=== PATIENT | female | born 2000 | race Caucasian/White ===

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

== ENCOUNTER → 2018-11-13 | Outpatient (CLI) | payer BC ==
--- NOTE | 2018-11-14 07:14 | XR ---
EXAMINATION TYPE: XR wrist complete LT DATE OF EXAM: 11/13/2018 CLINICAL HISTORY: pain TECHNIQUE: Frontal, lateral and oblique images of the left wrist are obtained. COMPARISON: None. FINDINGS: There is no acute fracture/dislocation evident. The joint spaces appear within normal gr its. The overlying soft tissue appears unremarkable. IMPRESSION: There is no acute fracture or dislocation seen. ICD 10 NO FRACTURE, INITIAL EVALUATION
== END ==
LOC: RADXRMAIN 17:12
PROVIDERS: ATTEND Family Medicine
DX: M25.532 Pain in left wrist (principal)

== ENCOUNTER 2020-11-15 23:43 | Emergency (ER) | payer BC ==
[2020-11-15 23:52] VITALS: BP 148/81; PULSE 77; RESP 16; TEMP 98.8
[2020-11-16] MEDS ORDERED: TOPICAL SKIN ADHESIVE 1 EACH AMP TOPICAL ONE (00:01)
--- NOTE | 2020-11-16 00:02 | ED ---
Wound/Laceration HPI - General Chief Complaint: Wound/Laceration Stated Complaint: Extremity injury,Right finger laceration Time Seen by Provider: 11/15/20 23:55 Source: patient Mode of arrival: ambulatory Limitations: no limitations - History of Present Illness Initial Comments: 20yo female with UTD tetanus (last year) prsenting for cc of left index finger laceration just prior to arrival. using eye brow razor pt was opening a plastic bag and it slipped cutting tip of finger. unsure if it required suture repair and presented to the ER. patient denies additional injuries. denies limited ROm of finger/sensation deficits. - Related Data Home Medications Medication Instructions Recorded Confirmed Dextroamphetamine/Amphetamine 20 mg PO DAILY 11/15/20 11/15/20 [Adderall] Allergies Allergy/AdvReac Type Severity Reaction Status Date / Time ibuprofen [From Motrin] Allergy Rash/Hives Verified 11/15/20 23:52 Penicillins Allergy Unknown Verified 11/15/20 23:52 Childhood Review of Systems ROS Statement: Those systems with pertinent positive or pertinent negative responses have been documented in the HPI. ROS Other: All systems not noted in ROS Statement are negative. Past Medical History Past Medical History: No Reported History History of Any Multi-Drug Resistant Organisms: None Reported Past Surgical History: Tonsillectomy Additional Past Surgical History / Comment(s): eustachian tubes Past Psychological History: No Psychological Hx Reported Smoking Status: Vaper Past Alcohol Use History: None Reported Past Drug Use History: None Reported General Exam - General Exam Comments Initial Comments: General: The patient is awake and alert, in no distress, and does not appear acutely ill. Eye: Pupils are equal, round and reactive to light, extra-ocular movements are intact. No nystagmus. There is normal conjunctiva bilaterally. No signs of icterus. Ears, nose, mouth and throat: There are moist mucous membranes and no oral lesions. Musculoskeletal: Normal ROM, no tenderness. Strength 5/5. Sensation intact. Pulses equal bilaterally 2+. Neurological: A&O x 3. CN II-XII intact, There are no obvious motor or sensory deficits. Coordination appears grossly intact. Speech is normal. Skin: Skin is warm and dry and no [id number] very superficial laceration of the left index finger pad. Psychiatric: Cooperative, appropriate mood & affect, normal judgment. Limitations: no limitations Course Vital Signs 11/15/20 23:47 Temperature 98.8 F Pulse Rate 77 Respiratory 16 Rate Blood Pressure 148/81 O2 Sat by Pulse 99 Oximetry Medical Decision Making - Medical Decision Making wound cleansed, examined..very superficial. no suture required. prefer exofin (topical skin adhesive). pt tdap UTD. patietn will be discharged with PCP f/u. Disposition Clinical Impression: Laceration of left index finger, Superficial laceration Disposition: HOME SELF-CARE Condition: Good Instructions (If sedation given, give patient instructions): Skin Adhesive Care (ED) Additional Instructions: Please use medication as discussed. Please follow-up with family doctor in the next 2 days of symptoms have not improved. Please return to emergency room if the symptoms increase or worsen or for any other concerns. Is patient prescribed a controlled substance at d/c from ED?: No Referrals: Tayo Hurst DO [Primary Care Provider] - 1-2 days Time of Disposition: 00:02
== END 2020-11-16 00:20 | disposition home or self-care (01) ==
LOC: EC 23:43
DX: S61.211A Laceration without foreign body of left index finger without damage to nail, initial encounter (principal); Z88.6 Allergy status to analgesic agent; Z88.0 Allergy status to penicillin; F17.290 Nicotine dependence, other tobacco product, uncomplicated; W26.8XXA Contact with other sharp object(s), not elsewhere classified, initial encounter; Y93.89 Activity, other specified
CPT/HCPCS: 99282

== ENCOUNTER 2020-11-17 21:00 | Emergency (ER) | payer BC ==
[2020-11-17 21:06] VITALS: BP 158/68; PULSE 99; RESP 18; TEMP 98.3
--- NOTE | 2020-11-17 21:24 | ED ---
Skin/Abscess/FB HPI - General Chief complaint: Skin/Abscess/Foreign Body Stated complaint: Finger Lac-revisit Time Seen by Provider: 11/17/20 21:07 Source: patient Mode of arrival: ambulatory Limitations: no limitations - History of Present Illness Initial comments: 20-year-old female patient presents to the emergency department today for evaluation of laceration to the left index finger. Patient sustained a laceration on Sunday was seen and evaluated did have the laceration glued. States that today while at work the finger started to bleed again. She was able to get the bleeding under control. Denies any significant pain. Denies any redness or purulent drainage. Denies any fever or chills. Denies any other injuries or concerns. - Related Data Home Medications Medication Instructions Recorded Confirmed Dextroamphetamine/Amphetamine 20 mg PO DAILY 11/15/20 11/15/20 [Adderall] Allergies Allergy/AdvReac Type Severity Reaction Status Date / Time ibuprofen [From Motrin] Allergy Rash/Hives Verified 11/17/20 21:06 Penicillins Allergy Unknown Verified 11/17/20 21:06 Childhood Review of Systems ROS Statement: Those systems with pertinent positive or pertinent negative responses have been documented in the HPI. ROS Other: All systems not noted in ROS Statement are negative. Past Medical History Past Medical History: No Reported History History of Any Multi-Drug Resistant Organisms: None Reported Past Surgical History: Ear Surgery, Tonsillectomy Additional Past Surgical History / Comment(s): eustachian tubes Past Psychological History: No Psychological Hx Reported Smoking Status: Vaper Past Alcohol Use History: None Reported Past Drug Use History: None Reported General Exam Limitations: no limitations General appearance: alert, in no apparent distress, other (Physical well- developed, well-nourished adult female patient in no acute distress. Vital signs upon presentation are temperature 98.3F, pulse 99, respirations 18, blood pressure 158/68, pulse ox 99% on room air.) Cardiovascular Exam: Present: regular rate, normal rhythm, normal heart sounds. Absent: systolic murmur, diastolic murmur, rubs, gallop, clicks GI/Abdominal exam: Present: soft, normal bowel sounds. Absent: distended, tenderness, guarding, rebound, rigid Extremities exam: Present: full ROM, normal capillary refill, other (There is 2 cm partially glued laceration noted to the pad of the left index finger. No current drainage. No surrounding erythema. No swelling. Skin is otherwise pink, warm, dry. Cap refills less than 3 seconds. Radial pulses 2+.). Absent: normal inspection, tenderness, pedal edema, joint swelling, calf tenderness Neurological exam: Present: alert, oriented X3, CN II-XII intact Psychiatric exam: Present: normal affect, normal mood Skin exam: Present: warm, dry, intact, normal color. Absent: rash Course Vital Signs 11/17/20 21:04 Temperature 98.3 F Pulse Rate 99 Respiratory 18 Rate Blood Pressure 158/68 O2 Sat by Pulse 99 Oximetry Medical Decision Making - Medical Decision Making 20-year-old female patient percents for reevaluation of laceration to the left index finger. States this started bleeding today. We did discuss since the laceration is over 48 hours old would not be able to perform any closure at this time. As bleeding is currently controlled we will give finger splint to prevent any further trauma to the area and hopefully prevent any rebleeding. If bleeding persists she is instructed to hold pressure over the area. She is instructed to keep the wound clean and dry. Instructed to follow-up with her primary care physician for recheck in 1-2 days. Return parameters discussed in detail. She verbalizes understanding and agrees with this plan. Disposition Clinical Impression: Bleeding from wound Disposition: HOME SELF-CARE Condition: Good Instructions (If sedation given, give patient instructions): Acute Wound Care (ED), Skin Adhesive Care (ED) Additional Instructions: Keep area clean. Use splint to avoid further injury to the finger. Follow-up through primary care physician for recheck in 1-2 days. Return to the emergency department for any new, worsening, or concerning symptoms. Is patient prescribed a controlled substance at d/c from ED?: No Referrals: Tayo Hurst DO [Primary Care Provider] - 1-2 days Time of Disposition: :23
== END 2020-11-17 21:29 | disposition home or self-care (01) ==
LOC: EC 21:00
DX: S61.211A Laceration without foreign body of left index finger without damage to nail, initial encounter (principal); F17.290 Nicotine dependence, other tobacco product, uncomplicated; Z88.0 Allergy status to penicillin; Z88.6 Allergy status to analgesic agent; W45.8XXA Other foreign body or object entering through skin, initial encounter
CPT/HCPCS: 99282

== ENCOUNTER 2021-12-16 17:24 | Emergency (ER) | payer BC, OTHER ==
[2021-12-16 17:30] VITALS: BP 153/89; PULSE 106; RESP 20; TEMP 98.1
[2021-12-16] MEDS ORDERED: TOPICAL SKIN ADHESIVE 1 EACH AMP TOPICAL ONE (17:52)
--- NOTE | 2021-12-16 18:11 | ED ---
General Adult HPI - General Chief complaint: Wound/Laceration Stated complaint: [facility] Finger lac Time Seen by Provider: 12/16/21 17:32 Source: patient Mode of arrival: ambulatory Limitations: no limitations - History of Present Illness Initial comments: This 21-year-old male presents emergency Department with a small laceration to her left hand pointer finger. She states she was at work and was cutting paper when the scissors slipped and cut the top of her finger at 4:30 PM today. Patient states she is up-to-date on her tetanus shot. She is not on any blood thinners. Patient denies any nausea, vomiting, chest pain, shortness breath, abdominal pain, headache. - Related Data Home Medications Medication Instructions Recorded Confirmed Dextroamphetamine/Amphetamine 20 mg PO BID 11/15/20 12/16/21 [Adderall] [place] 1 tab PO DAILY 12/16/21 12/16/21 Allergies Allergy/AdvReac Type Severity Reaction Status Date / Time ibuprofen [From Motrin] Allergy Rash/Hives Verified 12/16/21 18:17 Penicillins Allergy Unknown Verified 12/16/21 18:17 Childhood Review of Systems ROS Statement: Those systems with pertinent positive or pertinent negative responses have been documented in the HPI. ROS Other: All systems not noted in ROS Statement are negative. Past Medical History Past Medical History: No Reported History History of Any Multi-Drug Resistant Organisms: None Reported Past Surgical History: Ear Surgery, Tonsillectomy Additional Past Surgical History / Comment(s): eustachian tubes Past Psychological History: No Psychological Hx Reported Smoking Status: Vaper Past Alcohol Use History: None Reported Past Drug Use History: None Reported General Exam Limitations: no limitations General appearance: alert, in no apparent distress Head exam: Present: atraumatic, normocephalic Eye exam: Present: EOMI ENT exam: Present: normal exam, mucous membranes moist Respiratory exam: Present: normal lung sounds bilaterally. Absent: respiratory distress, wheezes, rales, rhonchi, stridor Cardiovascular Exam: Present: regular rate, normal rhythm, normal heart sounds. Absent: systolic murmur, diastolic murmur, rubs, gallop, clicks GI/Abdominal exam: Present: soft, normal bowel sounds. Absent: distended, tenderness, guarding, rebound, rigid Neurological exam: Present: alert, oriented X3, CN II-XII intact Psychiatric exam: Present: normal affect, normal mood Skin exam: Present: warm, dry (0.5 cm superficial laceration to left pointer finger at her middle phalanx on the medial aspect. Laceration currently not bleeding. Sensation intact. Patient able to flex, extend, and bend her finger.) Course Vital Signs 12/16/21 17:27 Temperature 98.1 F Pulse Rate 106 H Respiratory 20 Rate Blood Pressure 153/89 O2 Sat by Pulse 100 Oximetry Procedures - Laceration Laceration #1 Consent Obtained: verbal consent Site: hand (Left hand second finger) Description: linear (Used tissue adhesive for putting patient in finger splint) Patient Tolerated Procedure: well, no complications - Orthopedic Splinting/Casting Injury #1 Side: left Upper Extremity Injury Location: finger Upper Extremity Immobilizer: finger (other) (Finger splint) Medical Decision Making - Medical Decision Making This 21-year-old female presents to the emergency department with a laceration to her left hand second finger. Patient is up-to-date on her tetanus shot. Exofin topical adhesive applied over 0.5 cm cut. There was no bleeding present. Patient was placed in a finger splint without any complications. She was instructed to follow-up with primary care provider next 24-48 hours. Strict return precautions were given. Patient verbally agreed to plan. Patient sent home in stable condition. Case discussed with my attending, Dr. Nunez. Disposition Clinical Impression: Laceration of left hand Disposition: HOME SELF-CARE Condition: Stable Instructions (If sedation given, give patient instructions): Laceration (ED) Additional Instructions: Please return turn to the emergency department with any concerning, new, or worsening symptoms. Please up with primary care provider next 24-48 hours. Is patient prescribed a controlled substance at d/c from ED?: No Referrals: Tayo Hurst DO [Primary Care Provider] - 1-2 days Time of Disposition: 18:32
== END 2021-12-16 18:41 | disposition home or self-care (01) ==
LOC: EC 17:24
DX: S61.211A Laceration without foreign body of left index finger without damage to nail, initial encounter (principal); F17.290 Nicotine dependence, other tobacco product, uncomplicated
CPT/HCPCS: 99283